=== PATIENT | female | born 1965 | race Caucasian/White ===

== ENCOUNTER → 2021-09-16 14:54 | Outpatient (BNVA) | payer OTHER, SELFPAY | PROVIDERS: PCP Physician Assistant Medical; Visit Provider Hospitalist ==

== ENCOUNTER 2021-10-28 07:58 | Outpatient (REF) | payer OTHER, SELFPAY ==
--- NOTE | 2021-10-28 16:33 | PFT_ITS ---
INDICATION: Dyspnea. SPIROMETRY: The FEV1 to FVC 75% with an FEV1 of 1.13 L which is 108% predicted and an FVC of 4.18 L which is 113% predicted. No significant response to bronchodilators noted. Normal small airways. Maximum voluntary ventilation is 104% predicted. LUNG VOLUMES: Total lung capacity 108% predicted. DIFFUSION CAPACITY: DLCO 62% predicted. COMPARISONS: None available. INTERPRETATION: No obstructive nor restrictive ventilatory defects identified. No significant response to bronchodilators noted. Normal maximum voluntary ventilation. Lung volumes are within normal limits; however, the patient does have a moderate isolated diffusion impairment. Therefore, underlying pulmonary vascular conditions should be considered. The patient should also have correction with hemoglobin. Clinical correlation warranted. Erickson Ballard MD MR/MODL / [id number]
== END 2021-10-28 07:59 | disposition home or self-care (01) ==
LOC: HO.RESP 07:58
PROVIDERS: PCP Physician Assistant Medical; Visit Provider Hospitalist
DX: J44.9 Chronic obstructive pulmonary disease, unspecified (principal); R06.00 Dyspnea, unspecified
CPT/HCPCS: 94060; 94727; 94729

== ENCOUNTER → 2021-10-31 13:34 | Outpatient (BNVA) | payer OTHER, SELFPAY | PROVIDERS: PCP Physician Assistant Medical; Visit Provider Hospitalist ==

== ENCOUNTER 2023-10-01 14:42 | Outpatient (AMB) | payer OTHER, SELFPAY ==
--- NOTE | 2023-10-01 14:56 | MHC.OFFVIS ---
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 Apparently she has been having worsening cough and chest congestion for the last few weeks. Seems to be getting worse. She understands that is likely from her smoking. The phlegm has been also darker in color. Sometimes brown. Her cough is moderate in severity. Usually associated with some chest tightness and wheezing. The patient does not have inhaler at this time. In regards of her smoking she is resistant to quitting at this time. She states that she does enjoy it. She understands that is causing significant harm. We did talk about nicotine supplementation or substitution such as Nicotrol inhaler which will be submitted effective for her to continue using the nicotine but avoiding the smoke that is causing the most harm. The patient did undergo a CT scan of the chest which I personally reviewed with her. Patient does have emphysema primarily prior subtotal in the upper lung zones. She also has small pulmonary nodules, largest measuring 6 mm. At this point she is scheduled to have a repeat CT scan a year from her last. The patient has not had formal pulmonary function studies. On examination she does have significant rhonchi and wheezing. She needs to be started on Respiratory therapy. 10/31/2021 The patient is here for For a pulmonary follow-up visit. Overall the patient has been doing a lot better. She is responding well to the current respiratory regimen. She has not had to use her rescue inhaler. During the last visit she completed a course of azithromycin. At this point her chest congestion is improved. She has been using Nicotrol inhaler with good effect. She has been able to cut down the smoking. She is going to continue to do so. We did review her pulmonary function studies. She is reassured that she does not meet criteria for COPD although she does have small airways disease and also a decrease in the diffusing capacity. At this point the patient is scheduled to have a repeat CT scan to follow-up with the pulmonary nodules. The CT scan be a year from her last 1. will follow-up sometime in the fall 2019 to to assess her progress and also to review the CT scan. 10/01/2023 the patient is here for pulmonary follow-up visit. Has been asked to follow-up now for almost 2 years. The last time she was evaluated was office the chest. However, there was in severe sickness in the family the patient was helping the family member with his health needs. Unfortunately due to the stress of dealing with his medical issues she has been smoking more. She did not use the Nicotrol inhaler under now she has not ready to quit due to all the continue concerning stress. The patient is not ready to quit. She continues to use her rescue inhaler as needed. She is concerned about the possibility of cancer. The patient did have a CT scan of the chest back in 2020 [facility] Personally by me. Based on the patient's smoking history she is high risk for cancer. She continues to have respiratory symptoms. Complains of cough chest congestion moderate severity. She also has hoarseness of her voice. [facility] Medical History (Updated 07/21/23 @ 15:18 by Emely Dumas) Pulmonary nodules Tobacco dependence COPD (chronic obstructive pulmonary disease) Social History (System 07/21/23 @ 15:18 by Emely Dumas) Patient Tobacco Use Status: Current everyday Tobacco user Tobacco use type: Cigarette Cigarette Packs Per Day: 1 Cigarettes Per Day: 4 Years Smoked: 40 years Review of Systems Const Denies night sweats ENT Denies change in voice, Reports hoarseness, Denies lip swelling, Denies mouth pain, Reports nasal congestion, Reports nasal discharge and Denies tongue swelling Card Denies chest pain Resp Denies change in phlegm color, Reports chest congestion, Reports cough, Denies hemoptysis and Denies wheezing GI Denies abdominal pain Musc Denies no additional complaints Neuro Denies Neuro-related abnormal movements Psych Denies no additional complaints Javon/Lymph Denies easy bleeding and Denies lymphadenopathy Aller/Immun Denies lip swelling, Denies tongue swelling and Denies wheezing Physical Exam Vital Signs: Last Vital Signs Pulse 88 10/01/23 14:57 BP 128/70 10/01/23 14:57 Pulse Ox 96 10/01/23 14:57 Oxygen Delivery Method Room Air 10/01/23 14:57 BMI result Body Mass Index 25.2 Const General: alert HEENT General nose exam: Abnormal external nose present and Nasal discharge present Eyes Pupils: Equal, round and reactive pupils present Neck Neck: Yes normal visual inspection, Yes full ROM and Yes no lymphadenopathy Chest Chest palpation & inspection: normal inspection of the chest Resp Effort & Inspection: normal respiratory effort and prolonged expiratory phase Auscultation: no rhonchi, no wheezes and diminished lung sounds Cardio Rate: regular rate Rhythm: regular rhythm Heart sounds: S1 normal heart sound present and S2 normal heart sound present GI Palpation (GI): Soft to palpation and nontender Auscultation: normal bowel sounds General: Yes no CVA tenderness Back/Spine/Pelvis Back: no CVA tenderness Skin General skin exam: rashes and/or lesions noted Neuro Cranial nerves: Yes Equal, round and reactive pupils present Assessment & Plan Assessment & Plan (1) COPD (chronic obstructive pulmonary disease): Qualifiers: COPD type: chronic bronchitis Chronic bronchitis type: mucopurulent Qualified Code(s): J41.1 - Mucopurulent chronic bronchitis (2) Tobacco dependence: Code(s): F17.200 - Nicotine dependence, unspecified, uncomplicated (3) Pulmonary nodules: Code(s): R91.8 - Other nonspecific abnormal finding of lung field Plan stopped Trelegy SAMEERA as needeed stopped Nicotrol CT scan of the chest to follow pulmonary nodules last checked at [facility] in 2020. High risk for malignancy due to smoking Follow-up in 4-6 months Orders: Orders CT chest wo IV con Today R91.8 - Other nonspecific abnormal finding of lung field Quality Reporting (2019) Adult ([facility] 138/2/) Smoking risk assessment performed?: Yes Patient Tobacco Use Status: Current everyday Tobacco user Coding Level of Care Code Est Pt Level 4 (35541) Diagnoses Mucopurulent chronic bronchitis J41.1 COPD type: chronic bronchitis Chronic bronchitis type: mucopurulent Tobacco dependence F17.200 Pulmonary nodules R91.8 Time Spent (min) 20
[2023-10-01 14:57] VITALS: BP 128/70; PULSE 88; O2SAT 96; BMI 25.2
== END 2023-10-01 15:17 | disposition home or self-care (01) ==
PROVIDERS: PCP Physician Assistant Medical; Visit Provider Hospitalist
DX: J41.1 Mucopurulent chronic bronchitis (principal); F17.200 Nicotine dependence, unspecified, uncomplicated; R91.8 Other nonspecific abnormal finding of lung field
CPT/HCPCS: 99214

== ENCOUNTER → 2023-10-01 14:42 | Outpatient (BNVA) | payer OTHER, SELFPAY | PROVIDERS: PCP Physician Assistant Medical; Visit Provider Hospitalist ==

== ENCOUNTER 2023-10-21 07:12 | Outpatient (REF) | payer OTHER, SELFPAY ==
--- NOTE | ~2023-10-21 | CT_ITS ---
EXAMINATION: CT CHEST WITHOUT CONTRAST CLINICAL INFORMATION: Follow-up nodules. COMPARISON: 08/15/2021 TECHNIQUE: Multidetector volumetric CT imaging of the chest was done. Axial MIP volume rendering provided. Sagittal and coronal reformatted images were obtained. This CT examination was performed using dose optimization techniques as appropriate, variously including the following: *Automated exposure control *Adjustment of mA and/or kV according to patient size (this includes techniques or standardized protocols for targeted exams where dose is matched to indication/reason for exam; i.e. 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 Clear lungs. LUNGS: Trachea and bronchi are patent. Diffuse bronchial wall thickening. Hyperinflation. Paraseptal and centrilobular emphysema. Scattered atelectasis. 3 mm nodule in close association with the minor fissure, likely fissural lymph node. 5 mm subpleural calcified RUL nodule, 4:23. Scattered micronodules. MEDIASTINUM: Unremarkable thyroid. Nonspecific mediastinal lymph nodes. Nonenlarged heart. Small pericardial effusion. Nonaneurysmal aorta with atherosclerotic calcifications. Nonenlarged CORONARY ARTERY CALCIFICATION: Mild. PLEURA: There is no pleural effusion. No pleural mass or thickening. AXILLA: No lymphadenopathy. UPPER ABDOMEN: Redemonstration innumerable subcentimeter hepatic hypodense nodules. No change 1.1 cm right adrenal low density lesion consistent with lipid rich adenoma. OSSEOUS STRUCTURES: Trace dextroscoliosis. No suspicious osseous lesions. CT/CT chest wo IV con IMPRESSION: Emphysema. Atelectasis. No suspicious lung lesions which warrant follow-up. Stable innumerable hepatic cysts and right adrenal adenoma. Fleischner guidelines were followed.
== END 2023-10-21 07:13 | disposition home or self-care (01) ==
LOC: HO.CT 07:12
PROVIDERS: PCP Physician Assistant Medical; Visit Provider Hospitalist
DX: R91.8 Other nonspecific abnormal finding of lung field (principal)
CPT/HCPCS: 71250

== ENCOUNTER 2025-03-20 15:21 | Outpatient (AMB) | payer OTHER, SELFPAY ==
--- OUTSIDE RECORDS SUMMARY | 2023-12-31 09:00 | XMS_ITS | Continuity of Care Document ---
Author Organization [facility] Address [address] [place] [address] Phone Care Team Providers Care Medical Biller Name Role Phone Cj GAMINO, DEACON, JANELLE, Ender Unavailable U navailable Procedures Procedure Date Duplex Scan-extrem Veins; Uni/ CT & MA A Advance Directives Directive Yes / No Effective Date File Name No Information Encounters Encounter Description Practice Location Reason(s) For Visit Diagnoses Date Provider Providers Copied on Encounter [facility], [address], [place], [id number], [place] tel:[phone] [facility] - [place] Pain in left leg 4 Cj GAMINO, DEACON, JANELLE Handley. [address], [address], [facility] [place], [id number] , [place]. tel:[phone] Referring Provider: Gonzalo Montalvo NP [address], [address], [address], [place] [place], [address]. tel:[phone] Family History Family Member Type Diagnosis Age At Onset No Information Payers Payer name Insurance type Covered democrat ID Authorkatiea mari(s) [facility] [id number] Social History Type Description Quantity Date Captured Comments Sex Female Smoking Status No Information Chief Complaint And Reason For Visit No Information Reason For Referral Reason For Referral No Information History Of Present Illness Encounter Date Complaint History Of Prese nt Illness No Information Functional Status Date Functional Assessmen t No Information Instructions Date Instruction Additional Infor mation No Information Assessments Type Assessment Date No Information Patient Care Teams Name Effective Dates (start - stop) Status Members No Information
[2025-03-20 15:30] VITALS: BP 90/52; PULSE 99; O2SAT 95; BMI 25.8
--- NOTE | 2025-03-20 15:30 | A.OFFVIS_ITS ---
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 Apparently she has been having worsening cough and chest congestion for the last few weeks. Seems to be getting worse. She understands that is likely from her smoking. The phlegm has been also darker in color. Sometimes brown. Her cough is moderate in severity. Usually associated with some chest tightness and wheezing. The patient does not have inhaler at this time. In regards of her smoking she is resistant to quitting at this time. She states that she does enjoy it. She understands that is causing significant harm. We did talk about nicotine supplementation or substitution such as Nicotrol inhaler which will be submitted effective for her to continue using the nicotine but avoiding the smoke that is causing the most harm. The patient did undergo a CT scan of the chest which I personally reviewed with her. Patient does have emphysema primarily prior subtotal in the upper lung zones. She also has small pulmonary nodules, largest measuring 6 mm. At this point she is scheduled to have a repeat CT scan a year from her last. The patient has not had formal pulmonary function studies. On examination she does have significant rhonchi and wheezing. She needs to be started on Respiratory therapy. 10/31/2021 The patient is here for For a pulmonary follow-up visit. Overall the patient has been doing a lot better. She is responding well to the current respiratory regimen. She has not had to use her rescue inhaler. During the las t visit she completed a course of azithromycin. At this point her chest congestion is improved. She has been using Nicotrol inhaler with good effect. She has been able to cut down the smoking. She is going to continue to do so. We did review her pulmonary function studies. She is reassured that she does not meet criteria for COPD although she does have small airways disease and also a decrease in the diffusing capacity. At this point the patient is scheduled to have a repeat CT scan to follow-up with the pulmonary nodules. The CT scan be a year from her last 1. will follow-up sometime in the fall 2019 to to assess her progress and also to review the CT scan. 10/01/2023 the patient is here for pulmonary follow-up visit. Has been asked to follow-up now for almost 2 years. The last time she was evaluated was office the chest. However, there was in severe sickness in the family the patient was helping the family member with his health needs. Unfortunately due to the stress of dealing with his medical issues she has been smoking more. She did not use the Nicotrol inhaler under now she has not ready to quit due to all the continue concerning stress. The patient is not ready to quit. She continues to use her rescue inhaler as needed. She is concerned about the possibility of cancer. The patient did have a CT scan of the chest back in 2020 [facility] Personally by me. Based on the patient's smoking history she is high risk for cancer. She continues to have respiratory symptoms. Complains of cough chest congestion moderate severity. She also has hoarseness of her voice. 03/20/2025 the patient is here for pulmonary follow-up visit. Overall the patient has been doing well. Denies any worsening respiratory symptoms. She does have a chronic cough from her smoker's cough and chest congestion. Back in the winter she did have a bout of bronchitis in the flu and that was pretty significant for her. She did recover. She did not call for medications. Then the last CT scan she had was back in September 2023 demonstrating moderate degree of emphysema and also pulmonary nodules. The patient needs to continue to monitor closely her CAT scans specially with a smoking history. Will go ahead and refer her to the lung cancer screening program at this time. The patient also continues to smoke and she is not ready to quit. She is going through significant amount of stress with her daughter and is very stressful and she is not ready to give it up. Once she is ready she will let me know. In the meantime I did request a if she can cut down to minimize the potential injury to her lungs. The patient follow-up in the springtime if she has any issues prior to this she will call. I will prescribe her rescue inhaler. At this point she is not using any maintenance inhalers. [facility], [facility] Medical History (Updated 07/21/23 @ 15:18 by Emely Dumas) Pulmonary nodules Tobacco dependence COPD (chronic obstructive pulmonary disease) Social History Patient Tobacco Use Status: Current everyday Tobacco user Tobacco use type: Cigarette Cigarette Packs Per Day: 1 Cigarettes Per Day: 4 Years Smoked: 40 years Review of Systems Const Denies night sweats ENT Denies change in voice, Reports hoarseness, Denies lip swelling, Denies mouth pain, Reports nasal congestion, Reports nasal discharge and Denies tongue swelling Card Denies chest pain Resp Denies change in phlegm color, Reports chest congestion, Reports cough, Denies hemoptysis and Denies wheezing GI Denies abdominal pain Musc Denies no additional complaints Neuro Denies Neuro-related abnormal movements Psych Denies no additional complaints Javon/Lymph Denies easy bleeding and Denies lymphadenopathy Aller/Immun Denies lip swelling, Denies tongue swelling and Denies wheezing Physical Exam Vital Signs: Last Vital Signs Pulse 99 03/20/25 15:30 BP 90/52 L 03/20/25 15:30 Pulse Ox 95 03/20/25 15:30 Oxygen Delivery Method Room Air 03/20/25 15:30 BMI result Body Mass Index 25.8 Const General: alert HEENT General nose exam: Abnormal external nose present and Nasal discharge present Eyes Pupils: Equal, round and reactive pupils present Neck Neck: Yes normal visual inspection, Yes full ROM and Yes no lymphadenopathy Chest Chest palpation & inspection: normal inspection of the chest Resp Effort & Inspection: normal respiratory effort and prolonged expiratory phase Auscultation: no rhonchi, no wheezes and diminished lung sounds Cardio Rate: regular rate Rhythm: regular rhythm Heart sounds: S1 normal heart sound present and S2 normal heart sound present GI Palpation (GI): Soft to palpation and nontender Auscultation: normal bowel sounds General: Yes no CVA tenderness Back/Spine/Pelvis Back: no CVA tenderness Skin General skin exam: rashes and/or lesions noted Neuro Cranial nerves: Yes Equal, round and reactive pupils present Assessment & Plan Assessment & Plan (1) Tobacco dependence: Code(s): F17.200 - Nicotine dependence, unspecified, uncomplicated Category: Medical (2) COPD (chronic obstructive pulmonary disease): Code(s): J44.9 - Chronic obstructive pulmonary disease, unspecified Category: Medical Qualifiers: COPD type: chronic bronchitis Chronic bronchitis type: mucopurulent Qualified Code(s): J41.1 - Mucopurulent chronic bronchitis (3) Pulmonary nodules: Code(s): R91.8 - Other nonspecific abnormal finding of lung field Category: Medical Plan stopped Trelegy SAMEERA as needeed LDCT referral tobacco cessation Follow-up in 10-12 months Orders: Referrals Lung Cancer Screening Referral F17.200 - Nicotine dependence, unspecified, uncomplicated Medications: New albuterol sulfate 90 mcg/actuation 2 inhalations inhalation Q6H PRN 18 grams 12RF shortness of breath or wheezing 30 days J44.9 - Chronic obstructive pulmonary disease, unspecified Coding Level of Care Code Est Pt Level 4 (54211) Diagnoses Tobacco dependence F17.200 Mucopurulent chronic bronchitis J41.1 COPD type: chronic bronchitis Chronic bronchitis type: mucopurulent Pulmonary nodules R91.8 Time Spent (min) 16
== END 2025-03-20 15:51 | disposition home or self-care (01) ==
LOC: HO.HPS 15:21
PROVIDERS: PCP Physician Assistant Medical; Visit Provider Hospitalist
DX: F17.200 Nicotine dependence, unspecified, uncomplicated (principal); J41.1 Mucopurulent chronic bronchitis; R91.8 Other nonspecific abnormal finding of lung field
CPT/HCPCS: 99214